=== PATIENT | female | born 2005 | race Caucasian/White ===

== ENCOUNTER 2025-10-13 10:27 | Day surgery (SDC) | payer OTHER ==
[2025-10-13 10:50] VITALS: BMI 22.6
[2025-10-13] MEDS ORDERED: hydrALAZINE 20 MG/ML VIAL SLOW IVP PRN (11:03)
== END 2025-10-13 13:46 | disposition home or self-care (01) ==
LOC: CSHLD/OP 10:27
PROVIDERS: ATTEND Obstetrics & Gynecology
DX: O99.891 Other specified diseases and conditions complicating pregnancy (principal); R10.20 Pelvic and perineal pain unspecified side; O23.592 Infection of other part of genital tract in pregnancy, second trimester; B96.89 Other specified bacterial agents as the cause of diseases classified elsewhere; Z3A.22 22 weeks gestation of pregnancy
CPT/HCPCS: 76815; 87480; 87510; 87660; 99283